=== PATIENT | male | born 1965 | race Caucasian/White ===

== ENCOUNTER 2016-11-20 20:34 | Emergency (ER) | payer OTHER ==
[2016-11-20 20:43] VITALS: BP 153/86; PULSE 84; TEMP 98.4; BMI 25.8
--- NOTE | 2016-11-20 20:57 | PDOC ---
Suture Removal/Wound Check HPI - History of Present Illness History Source: Yes: Patient Exam Limitations: Yes: No Limitations - Onset of Previous Treatment Comment:: 11/20/16 21:12 The patient is a 51 year old male, with no significant past medical history, who presents to the emergency department for staple removal. He states that roughly 8 days ago he hit the back of his head against a corner as he lifted his head from a bent position. He received 8 jessica. He states that he has not had any erythema, warmth or discharge from the area. The patient denies fever, chills, headache and dizziness. Allergies: None Past surgical history: None reported Social history: Occasional alcohol use. No tobacco or drug use reported <Shane Patten - Last Filed: 11/20/16 21:12> <Justa Castro - Last Filed: 11/21/16 03:21> - History of Present Illness Chief Complaint: Suture/Staple Removal (other) Stated Complaint: STAPLE REMOVAL Time Seen by Provider: 11/20/16 20:37 Past History <Shane Patten - Last Filed: 11/20/16 21:12> - Immunization History Tetanus Status: Unknown - Social History Smoking History: No Smoking Status: Never smoked Number of Ciarettes Per Day: 0 Cigars Per Day: 0 Alcohol Use: occasionally Drug Use: none <Justa Castro - Last Filed: 11/21/16 03:21> - Past Medical History Allergies/Adverse Reactions: Allergies No Known Allergies Allergy (Verified 02/01/12 21:38) Home Medications: Ambulatory Orders Rosuvastatin Calcium [Crestor] 20 mg PO DAILY 02/01/12 Duloxetine HCl [Cymbalta] 60 mg PO DAILY #0 11/04/14 Naproxen [EC-Naprosyn] 375 mg PO BID PRN #14 tablet.ec 11/04/14 Venlafaxine HCl [Effexor Xr] 150 mg PO 2 daily #60 05/19/16 Suture Removal/Wound Check PE - Physical Exam Comments: 11/20/16 21:15 GENERAL: Awake, alert, and fully oriented, in no acute distress HEAD: No signs of trauma, normocephalic, atraumatic EYES: PERRLA, EOMI, sclera anicteric, conjunctiva clear NEUROLOGICAL: Cranial nerves II through XII grossly intact. Normal speech, normal gait, no focal sensorimotor deficits <Shane Patten - Last Filed: 11/20/16 21:12> *Review of Systems - Review of Systems Able to Perform ROS?: Yes Comments:: 11/20/16 21:14 GENERAL/CONSTITUTIONAL: No fever or chills. No weakness. HEAD, EYES, EARS, NOSE AND THROAT: +8 jessica in back of head. No change in vision. No ear pain or discharge. No sore throat. SKIN: No rash NEUROLOGIC: No headache, vertigo, loss of consciousness, or change in strength/ sensation. <Shane Patten - Last Filed: 11/20/16 21:12> Medical Decision Making - Medical Decision Making Documentation has been prepared under my direction and personally reviewed by me in its entirety. I attest that this documented accurately reflects all work, treatment, procedures and medical decision making performed by me. As noted above, this 51-year-old man presents with history of scalp laceration sustained 8 days ago when he was visiting [place]. Patient struck the top of his head and had no loss of consciousness. Patient was seen at medical facility and received stapling of the laceration. He reports no complications of healing; he has been applying bacitracin ointment and Vaseline to the laceration daily. Patient states that he has had a mild headache for last 2 days but no lightheadedness/fatigue/nausea or other constitutional symptoms. Prior to this, he had no headache or other symptoms Exam reveals well-healed vertex laceration without evidence of edema/erythema or tenderness. [place] removed without complication. Bacitracin ointment applied. Patient advised to follow-up with Dr. Fung (his PMD) within the next 5 days, sooner if he has persistent headache <Justa Castro - Last Filed: 11/21/16 03:21> *DC/Admit/Observation/Transfer - Attestations Scribe Attestion: 11/20/16 21:15 Documentation prepared by Shane Patten, acting as medical record consultant for Justa Castro MD <Shane Patten - Last Filed: 11/20/16 21:12> <Justa Castor - Last Filed: 11/21/16 03:21> Diagnosis at time of Disposition: Removal of jessica - Discharge Dispostion Disposition: HOME Condition at time of disposition: Stable - Referrals Referrals: Javier Fung MD [Primary Care Provider] - 1 week - Patient Instructions Printed Discharge Instructions: DI for Suture Removal Additional Instructions: continue bacitracin to wound daily for the next week return to ER if you have severe headache/vomiting followup with Dr Fung within 1 week
== END 2016-11-20 21:05 | disposition home or self-care (01) ==
LOC: FER 20:34
DX: Z48.02 Encounter for removal of sutures (principal)
CPT/HCPCS: 99281-25

== ENCOUNTER 2017-07-20 09:33 | Day surgery (SDC) | payer OTHER ==
[2017-07-17 08:21] VITALS: BMI 26.6
[2017-07-20 09:58] VITALS: BP 138/93; PULSE 76; TEMP 97.8
[2017-07-20] MEDS ORDERED: ceFAZolin SODIUM 1 GM VIAL ONE (10:24)
[2017-07-20] MEDS ORDERED: MIDAZOLAM HCL 2 MG/2 ML SINGLE DOSE VIAL ONE (10:50)
--- NOTE | 2017-07-20 11:54 | PN ---
Progress Note (short form) - Note Progress Note: Patient admits to taking Motrin yesterday and Thursday. Case cancelled.
== END 2017-07-20 11:38 | disposition home or self-care (01) ==
LOC: JASU-SURG 09:33
PROVIDERS: ATTEND Plastic Surgery
PROC: 09JY8ZZ Inspection of Sinus, Via Natural or Artificial Opening Endoscopic (ICD-10-PCS; principal; 2017-07-20)
DX: Z53.8 Procedure and treatment not carried out for other reasons (principal)

== ENCOUNTER 2017-08-07 10:25 | Day surgery (SDC) | payer OTHER ==
[2017-08-06 09:25] VITALS: BMI 26.6
[2017-08-07] MEDS ORDERED: LIDOCAINE 1%/EPI 1:100000 (20 ML MULTI DOSE VIAL) ONE ×2 (11:27→13:43)
[2017-08-07] MEDS ORDERED: OXYMETAZOLINE 0.05% NASAL SOLUTION 15 ML BOTTLE NS ONE ×2 (11:27→12:57)
[2017-08-07] MEDS ORDERED: LIDOCAINE 1%/EPI 1:100000 (50 ML MULTI DOSE VIAL) INF ONE ×2 (12:57→13:35)
[2017-08-07] MEDS ORDERED: oxyCODONE HCL 5 MG TABLET PO PRN ×4 (15:05→15:29)
[2017-08-07] MEDS ORDERED: ONDANSETRON 4 MG/2 ML VIAL IVPUSH PRN (15:05)
[2017-08-07] MEDS ORDERED: ONDANSETRON 4 MG/2 ML VIAL ONE (15:06)
[2017-08-07] MEDS ORDERED: LACTATED RINGERS SOLUTION 1,000 ML IV SCH ×2 (15:15→15:30)
[2017-08-07] MEDS ORDERED: ONDANSETRON 4 MG/2 ML VIAL IVPB PRN (15:29)
--- NOTE | 2017-08-07 15:34 | OP ---
Operative Note - Note: Operative Date: 08/07/17 Pre-Operative Diagnosis: nasal fracture and deviated nasal septum Operation: nasal septoplasty with reduction of nasal fracture and rasping Findings: previous septoplasty Post-Operative Diagnosis: Same as Pre-op Surgeon: Jewel Gonsalez Anesthesia: General
[2017-08-07] MEDS ORDERED: oxyCODONE HCL 5 MG TABLET ONE (16:38)
[2017-08-07 17:29] VITALS: BP 153/100; PULSE 101; TEMP 98.2
--- NOTE | 2017-08-09 10:41 | OP ---
DATE OF OPERATION: 08/07/2017 TITLE OF PROCEDURE: Septal rhinoplasty with reduction of previous nasal fracture. PREOPERATIVE DIAGNOSIS: Nasal deformity with deviated nasal septum. POSTOPERATIVE DIAGNOSIS: Nasal deformity with deviated nasal septum. ATTENDING SURGEON: Jewel Gonsalez MD DISPOSAL WORKER: No assistants. ANESTHESIA: General endotracheal anesthesia. ANESTHESIOLOGIST: Richard Diop MD HISTORY CARD CLERK: Rahat Burgos CRNA DESCRIPTION OF PROCEDURE: The patient is marked in the holding area, awake and aware of all surgical plans. He understands and agrees to proceed. The procedure is as follows: The patient was brought to the operating room, given 1 g of Ancef preoperatively. He is given sequential compression stockings and JUDY hose preoperatively, prepped and draped in standard surgical fashion. After induction of general anesthesia, a throat packing was placed. The nose was prepped first with injection of 1% lidocaine with 1:100,000 epinephrine into the submucosal plane of the nasal septum. The nose was then packed with Afrin-soaked 0.5-inch cottonoids. The face was prepped with Betadine, and a time-out was called. Patient, procedure, incision sites were verified. At this point, a Erasmo incision was made on the left septum, side of the septum. Through this, dissection was carried down to the level of the septal cartilage where a submucosal submucoperichondrial plane was then dissected with a [place] elevator. Through the same incision, a small cut in the septum was made with a 15-blade scalpel to allow for the Maureen elevator to elevate the mucoperichondrium off the right contralateral side of the septum. Once an adequate elevation was performed, a self-retaining nasal speculum was able to be advanced into the septal dissection to expose the deviated cartilage, which was retained. The Sanjay Swivel Knife was then used to remove the deviated portion of septal cartilage, after which, the defect was irrigated. There was no residual deviation that was seen, and this had corrected to a large degree his nasal deviation. At this point, additional lidocaine with epinephrine was then injected into nasal incisions and meets the pyriform aperture as well as the bilaterally intercartilaginous incisions. The dorsum of the nose was injected preoperatively with a total of 6 mL of 1% lidocaine with 1:100,000 epinephrine injected. At this point in the operation, a total of 8 mL was injected, and time was awaited prior to dissection. The pyriform aperture incision was then made using a Garfield elevator. A subperiosteal tunnel was developed for a low-to-low osteotomy using a 3-mm guarded osteotome. Bilateral low-to-low osteotomies were performed, which easily entered into the previous fracture plane for reduction and correction. The same osteotomy was performed on the patients right side. With this, excellent mobilization of the bone was able to be performed with a near complete correction of the patients nasal deformity. It was determined that, given this, no medial osteotomy was required. However, some slight dorsal rasping was performed for cosmesis and symmetry of the nasal pyramid. This was performed through bilateral intercartilaginous incisions, which were connected to subcutaneous dorsal dissection. Through the dorsal dissection, the bony pyramid was able to be accessed, and a 3 Fomon rasp was used to rasp very, very slightly 2 areas of imperfect contour. Once perfect contour was achieved, the wound was irrigated, and it was assessed that the patient had an excellent correction of his nasal deviation. The Mcconnico septal incision was closed with a series of interrupted 5-0 chromic gut sutures. It should be noted that the right side of the septum was without any rent, and therefore should be no risk for septal perforation. The pyriform aperture incisions and the intercartilaginous incisions were left open to drain. Internal nasal splints, Silastic splints, were prepared with bacitracin and were placed in each nostril. They were secured to the caudal septum with a mattress 4-0 Prolene suture. The exterior of the nose was dressed with Steri-Strips and a Yancey splint. All tissues were pink and viable. Patient was awoken from anesthesia. Throat packing was removed. Stomach was suctioned. The patient transferred to recovery without complications. Niyah [id number]
--- NOTE | 2017-08-14 14:14 | PATH ---
Surgical Pathology Report Patient Name: LUCIA WILSON Med. Rec. #: [id number] /Age/Gender: 1965 (Age: 51) / M Account: [id number] Location: [facility] Taken: 08/07/2017 Received: 08/07/2017 Reported: 08/14/2017 Physicians: Jewel Gonsalez Specimen(s) Received NASAL SEPTAL CARTILAGE Clinical History Deviated septum Final Diagnosis NASAL SEPTAL CARTILAGE, SEPTOPLASTY: CARTILAGE AND BONE, CONSISTENT WITH NASAL SEPTUM. Electronically Signed Judit Stevens M.D. Gross Description Received in formalin labeled "nasal septal cartilage," is a 1.5 x 1.1 x 0.2 cm aggregate of multiple kern, irregular portions of possible bone and cartilage. The specimen is entirely submitted in one cassette, following decalcification. 08/10/201708/10/2017
== END 2017-08-07 17:20 | disposition home or self-care (01) ==
LOC: FASU 10:25
PROVIDERS: ATTEND Plastic Surgery
PROC: 09CM0ZZ Extirpation of Matter from Nasal Septum, Open Approach (ICD-10-PCS; principal; 2017-08-07 12:00)
PROC: 0NSB0ZZ Reposition Nasal Bone, Open Approach (ICD-10-PCS; 2017-08-07 12:00)
DX: J34.2 Deviated nasal septum (principal); S02.2XXA Fracture of nasal bones, initial encounter for closed fracture; X58.XXXA Exposure to other specified factors, initial encounter; Y93.9 Activity, unspecified; Y92.9 Unspecified place or not applicable
CPT/HCPCS: 88302-TC; 88311-TC; 94760

== ENCOUNTER 2018-07-05 07:55 | Day surgery (SDC) | payer OTHER ==
[2018-06-28 14:04] VITALS: BMI 26.6
[2018-07-05] MEDS ORDERED: PROPOFOL 20 ML ONE ×2 (08:16)
[2018-07-05 09:56] VITALS: TEMP 98
[2018-07-05 10:23] VITALS: BP 122/78; PULSE 70
== END 2018-07-05 10:24 | disposition home or self-care (01) ==
LOC: FASU-ENDO 07:55
PROVIDERS: ATTEND Internal Medicine Gastroenterology
PROC: 0DJD8ZZ Inspection of Lower Intestinal Tract, Via Natural or Artificial Opening Endoscopic (ICD-10-PCS; principal; 2018-07-05 09:22)
DX: Z12.11 Encounter for screening for malignant neoplasm of colon (principal); K57.30 Diverticulosis of large intestine without perforation or abscess without bleeding

== ENCOUNTER 2019-06-16 02:57 | Emergency (ER) | payer OTHER ==
[2019-06-16 03:03] VITALS: BP 150/95; PULSE 75; TEMP 98.1; BMI 29.0
[2019-06-16] MEDS ORDERED: TETRACAINE 0.5% OPHTH SOLN 2 ML BOTTLE ONE (03:05)
[2019-06-16] MEDS ORDERED: FLUORESCEIN NA 1 EA STRIP ONE (03:05)
[2019-06-16] MEDS ORDERED: TOBRAMYCIN 0.3% OPHTH SOLN 5 ML BOTTLE ONE (03:18)
--- NOTE | 2019-06-16 03:29 | PDOC ---
History of Present Illness - General Chief Complaint: Allergic Reaction Stated Complaint: ALLERGY Time Seen by Provider: 06/16/19 03:02 History Source: Patient Exam Limitations: No Limitations - History of Present Illness Initial Comments: 06/16/19 03:23 This is a 53-year-old male who comes in complaining of acute onset of bilateral eye pain. Patient denies any trauma or injury to the eye. Patient said that he thinks he is having an ALLERGIC reaction however there is no itching of the eye. Patient is complaining of a thick mucous discharge from the eyes. Patient said that symptoms began after his brought to be sure home from a concert and thinks it may have been causing the reaction. Patient otherwise is healthy and denies any other complaints. Allergies: as per nursing notes Past Medical History: HTN Social history: Lives with family. No smoking. No alcohol. No illicit drugs. Surgical history: None General: No fevers or chills, no weakness, no weight loss HEENT: No change in vision. No sore throat,. No ear pain, complaint of bilateral eye pain CardioVascular: no chest discomfort. No shortness of breath Respiratory:No cough, or wheezing. Gastrointestinal: no nausea, vomiting, diarrhea or constipation, No rectal bleeding Genitourinary: No dysuria, hematuria, or frequency Musculoskeletal: No joint or muscle pain or swelling Neurologic: No headache, vertigo, dizziness or loss of consciousness Psychiatric: nor depression Skin: No rashes or easy bruising Endocrine: no increased thirst or abnormal weight change Allergic: no skin or latex allergy All other systems reviewed and normal GENERAL: The patient is awake, alert, and fully oriented, in no acute distress. HEAD: Normal with no signs of trauma. EYES: Pupils equal, round and reactive to light, extraocular movements intact, sclera anicteric, conjunctiva clear. Patient had difficult time opening his eyes until I was able to put tetracaine in them once he was able to open his eyes the conjunctiva was clear there was no uptake on fluorescein staining there was no foreign body visible. There was a clear watery discharge from the eyes. EXTREMITIES:atraumatic, Normal range of motion, no edema. NEUROLOGICAL: Normal speech, normal gait. PSYCH: Normal mood, normal affect. SKIN: Warm, Dry, normal turgor, no rashes or lesions noted. Assessment and plan: This is a 53-year-old male who comes in complaining of bilateral eye pain. Patient was unable to open his eye secondary to the discomfort. I was able to get him to open his eyes by putting tetracaine in them. He had a normal exam however I was unable to use the microscope to fully evaluate his eyes. Patient was given TobraDex and discharged. 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 Past History - Past Medical History Allergies/Adverse Reactions: Allergies Allergy/AdvReac Type Severity Reaction Status Date / Time No Known Allergies Allergy Verified 07/05/18 08:12 Home Medications: Ambulatory Orders Amlodipine Besylate 5 mg PO DAILY 06/16/19 Finasteride 1 mg PO DAILY 06/16/19 Lamotrigine 200 mg PO DAILY 06/16/19 Venlafaxine HCl ER [Effexor Xr -] 150 mg PO DAILY 06/16/19 Anemia: No Asthma: No Cancer: No Cardiac Disorders: No CVA: No COPD: No CHF: No Dementia: No Diabetes: No GI Disorders: No Disorders: No HTN: No Hypercholesterolemia: Yes Liver Disease: No Psychiatric Problems: Yes Seizures: No Thyroid Disease: No - Surgical History Abdominal Surgery: No Appendectomy: No Cardiac Surgery: No Cholecystectomy: No Lung Surgery: No Neurologic Surgery: No Orthopedic Surgery: Yes (andres rotator cuff) - Psycho Social/Smoking Cessation Hx Smoking Status: No Smoking History: Unknown if ever smoked Have you smoked in the past 12 months: No Number of Cigarettes Smoked Daily: 0 Cigars Per Day: 0 Information on smoking cessation initiated: No Hx Alcohol Use: No Drug/Substance Use Hx: No Substance Use Type: Alcohol Hx Substance Use Treatment: No *Physical Exam - Vital Signs Last Vital Signs Temp Pulse Resp BP Pulse Ox 98.1 F 75 14 150/95 100 06/16/19 02:59 06/16/19 02:59 06/16/19 02:59 06/16/19 02:59 06/16/19 02:59 Discharge - Discharge Information Problems reviewed: Yes Clinical Impression/Diagnosis: Pain of both eyes Condition: Good Disposition: HOME - Admission No - Follow up/Referral Referrals: Javier Fung MD [Primary Care Provider] - - Patient Discharge Instructions Additional Instructions: put 2 drops of the medicine in each eye 4 times a day for the next 4 days. It is important that you the seen and evaluated by your eye doctor today especially if you have any additional discomfort. Return to the emergency department immediately with ANY new, persistent or worsening symptoms. Continue any medications as previously prescribed by your physician. You should follow up with your primary doctor as soon as possible regarding today's emergency department visit. . Please make sure your doctor reviews the results of your emergency evaluation. Thank you for coming to the Emergency Department today for your care. It was a pleasure to see you today. Please note that your evaluation is INCOMPLETE until you follow-up with your doctor. - Post Discharge Activity
== END 2019-06-16 03:39 | disposition home or self-care (01) ==
LOC: FER 02:57
DX: H57.13 Ocular pain, bilateral (principal); E78.00 Pure hypercholesterolemia, unspecified; F99 Mental disorder, not otherwise specified
CPT/HCPCS: 99283-25

== ENCOUNTER 2022-02-16 23:14 | Emergency (ER) | payer OTHER ==
[2022-02-16] MEDS ORDERED: DIPHTH,PERTUSS(ACELL),TET 0.5 ML DISP.SYRIN IM ONE ×2 (23:22→23:25)
[2022-02-16 23:24] VITALS: BP 107/74; PULSE 78; TEMP 98.2; BMI 25.8
[2022-02-16] MEDS ORDERED: ACETAMINOPHEN 500 MG TABLET (FP) PO ONE (23:28)
[2022-02-16] MEDS ORDERED: ACETAMINOPHEN 500 MG TABLET (FP) ONE (23:29)
== END 2022-02-16 23:43 | disposition home or self-care (01) ==
LOC: FER 23:14
PROC: 3E0234Z Introduction of Serum, Toxoid and Vaccine into Muscle, Percutaneous Approach (ICD-10-PCS; principal; 2022-02-16)
DX: S61.211A Laceration without foreign body of left index finger without damage to nail, initial encounter (principal); Y99.9 Unspecified external cause status
CPT/HCPCS: 90715; 99284-25

== ENCOUNTER 2024-05-28 19:38 | Emergency (ER) | payer OTHER ==
[2024-05-28 19:53] VITALS: BP 121/83; PULSE 80; RESP 16; TEMP 98.4; BMI 25.9
[2024-05-28] MEDS ORDERED: DIPHTH,PERTUSS(ACELL),TET 0.5 ML DISP.SYRIN IM ONE (21:11)
== END 2024-05-28 21:19 | disposition home or self-care (01) ==
LOC: FER 19:38
PROC: 0XQKXZZ Repair Left Hand, External Approach (ICD-10-PCS; principal; 2024-05-28)
DX: S61.412A Laceration without foreign body of left hand, initial encounter (principal); W27.2XXA Contact with scissors, initial encounter; Z23 Encounter for immunization
CPT/HCPCS: 99282-25